=== PATIENT | female | born 1945 | race Caucasian/White ===

== ENCOUNTER 2022-06-12 09:12 | Inpatient (IN) | payer SELFPAY ==
[~2022-06-12] VITALS: Ht 160 cm; Wt 59.1 kg
[2022-06-12 09:31] LABS: GLUCOSE,POINT OF CARE 126 MG/DL (70-110)
[2022-06-12] MEDS ORDERED: VANCOMYCIN 1GM/WATER(PEG/NADA) 200 ML IV ONE (09:45)
[2022-06-12] MEDS ORDERED: LEVO137T24 PO (09:45)
[2022-06-12] MEDS ORDERED: PIPERACILLIN/TAZO 3.375 GM/D5W 50 ML IV ONE (09:45)
[2022-06-12] MEDS ORDERED: ALPR-705 PO (09:45)
[2022-06-12] MEDS ORDERED: INSREG SQ (09:45)
[2022-06-12] MEDS ORDERED: LISI-894 PO (09:45)
[2022-06-12] MEDS ORDERED: METF-1211 PO (09:45)
[2022-06-12] MEDS ORDERED: ATOR10TA84 PO (09:45)
[2022-06-12] MEDS ORDERED: MORPHINE SULFATE 2 MG/ML SYRINGE IVP ONE (10:00)
[2022-06-12 10:04] LABS: BASOPHILS % (AUTO) 0.3 % (0.0-2.0); EOSINOPHILS % (AUTO) 1.1 % (1.0-6.0); HEMATOCRIT 32.2 % (36-46); HEMOGLOBIN 10.4 g/dL (12.0-16.0); LYMPHOCYTES # (AUTO) 2.4 K/uL (1.0-4.8); LYMPHOCYTES % (AUTO) 15.2 % (22.0-44.0); MEAN CORPUSCULAR HEMOGLOBIN 29.2 pg (26.0-34.0); MEAN CORPUSCULAR HGB CONC 32.3 G/dL (31.0-37.0); MEAN CORPUSCULAR VOLUME 90 fL (80-100); MONOCYTES # (AUTO) 0.9 K/uL (0.1-1.0); MONOCYTES % (AUTO) 5.4 % (2.0-9.0); NEUTROPHILS # (AUTO) 12.4 K/uL (1.8-7.7); PLATELET COUNT (AUTO) 613 K/uL (150-450); RED BLOOD CELL COUNT(AUTO) 3.57 MIL/uL (4.00-5.20); RED CELL DISTRIBUTION WIDTH 14.5 % (11.5-14.5)
[2022-06-12 10:23] LABS: COVID AG,FIA SOURCE NASOPHARYNGEAL
[2022-06-12 10:28] LABS: CALCIUM, TOTAL 9.4 mg/dL (8.8-10.5); CREATININE 1.29 mg/dL (0.60-1.30); POTASSIUM 4.4 mmol/L (3.5-5.1)
[2022-06-12 10:33] LABS: ALBUMIN 2.5 g/dL (3.4-5.0); BILIRUBIN,TOTAL 0.3 mg/dL (0.1-1.0); TOTAL PROTEIN, SERUM 7.6 g/dL (6.4-8.2)
[2022-06-12] MEDS ORDERED: ONDANSETRON HCL 4 MG/2 ML VIAL IVP PRN ×2 (11:00→13:00)
[2022-06-12] MEDS ORDERED: ACETAMINOPHEN 325 MG TABLET PO PRN ×2 (11:00→13:00)
[2022-06-12] MEDS ORDERED: MORPHINE SULFATE 2 MG/ML SYRINGE IVP PRN (11:00)
[2022-06-12] MEDS ORDERED: HYDROCODONE/ACETAMINOPHEN 5-325 MG TABLET PO PRN (11:00)
[2022-06-12] MEDS ORDERED: CloNIDine HCL 0.1 MG TABLET PO PRN (13:00)
[2022-06-12] MEDS ORDERED: ZOLPIDEM TARTRATE 5 MG TABLET PO PRN (13:00)
[2022-06-12] MEDS ORDERED: DEXTROSE 50%-WATER 25 GM/50 ML SYRINGE IVP PRN (13:00)
[2022-06-12] MEDS ORDERED: MAGNESIUM HYDROXIDE SUSPENSION 30 ML UDCUP PO PRN (13:00)
[2022-06-12] MEDS ORDERED: BISACODYL 10 MG RECTAL RECTAL SUPPOSITORY PR PRN (13:00)
[2022-06-12] MEDS: LISINOPRIL 20 MG TABLET PO SCH ×2 (14:14→20:47)
[2022-06-12] MEDS: HYDROCODONE/ACETAMINOPHEN 5-325 MG TABLET PO PRN ×2 (14:17→20:46)
[2022-06-12 15:57] VITALS: BP 127/60
[2022-06-12] MEDS: HEPARIN SODIUM,PORCINE 5,000 UNITS/ML VIAL SQ SCH ×2 (16:00→23:32)
[2022-06-12] MEDS: MetFORMIN HCL 500 MG TABLET PO SCH (18:00)
[2022-06-12] MEDS: MORPHINE SULFATE 2 MG/ML SYRINGE IVP PRN (18:26)
[2022-06-12 19:19] VITALS: BP 143/64
[2022-06-12 19:46] LABS: GLUCOMETER DEV NAME(LOC) 6N.1; GLUCOSE,POINT OF CARE 57 MG/DL (70-110)
[2022-06-12 19:46] LABS: GLUCOMETER DEV NAME(LOC) 6N.2B; GLUCOSE,POINT OF CARE 89 MG/DL (70-110)
[2022-06-12] MEDS ORDERED: DEXTROSE 5%-0.45% SODIUM CHL 1,000 ML IV ONE (20:30)
[2022-06-12] MEDS: DOCUSATE SODIUM 100 MG CAPSULE PO SCH (20:46)
[2022-06-12 22:51] LABS: GLUCOMETER DEV NAME(LOC) 6N.2B; GLUCOSE,POINT OF CARE 120 MG/DL (70-110)
[2022-06-13] MEDS: HYDROCODONE/ACETAMINOPHEN 5-325 MG TABLET PO PRN ×4 (01:59→22:10)
[2022-06-13 04:21] VITALS: BP 142/75
[2022-06-13] MEDS: LEVOTHYROXINE SODIUM 137 MCG TABLET PO SCH (06:32)
[2022-06-13 06:48] LABS: BASOPHILS % (AUTO) 0.2 % (0.0-2.0); EOSINOPHILS % (AUTO) 0.8 % (1.0-6.0); HEMATOCRIT 29.1 % (36-46); HEMOGLOBIN 9.6 g/dL (12.0-16.0); LYMPHOCYTES % (AUTO) 11.6 % (22.0-44.0); MEAN CORPUSCULAR HGB CONC 32.9 G/dL (31.0-37.0); MEAN CORPUSCULAR VOLUME 91 fL (80-100); MONOCYTES # (AUTO) 1.2 K/uL (0.1-1.0); MONOCYTES % (AUTO) 6.7 % (2.0-9.0); NEUTROPHILS # (AUTO) 14.1 K/uL (1.8-7.7); NEUTROPHILS % (AUTO) 80.7 % (40.0-70.0); PLATELET COUNT (AUTO) 530 K/uL (150-450); RED CELL DISTRIBUTION WIDTH 14.3 % (11.5-14.5)
[2022-06-13 07:06] LABS: CALCIUM, TOTAL 8.9 mg/dL (8.8-10.5); CREATININE 1.31 mg/dL (0.60-1.30); POTASSIUM 4.6 mmol/L (3.5-5.1)
[2022-06-13 07:06] LABS: GLUCOMETER DEV NAME(LOC) 6N.1; GLUCOSE,POINT OF CARE 87 MG/DL (70-110)
[2022-06-13 07:34] VITALS: BP 156/66
[2022-06-13] MEDS: MetFORMIN HCL 500 MG TABLET PO SCH ×2 (07:46→18:17)
[2022-06-13] MEDS: HEPARIN SODIUM,PORCINE 5,000 UNITS/ML VIAL SQ SCH ×3 (07:46→23:42)
[2022-06-13] MEDS: DOCUSATE SODIUM 100 MG CAPSULE PO SCH ×2 (08:58→19:44)
[2022-06-13] MEDS: PANTOPRAZOLE SODIUM 40 MG DR TABLET PO SCH (08:58)
[2022-06-13] MEDS: LISINOPRIL 20 MG TABLET PO SCH ×2 (08:58→19:44)
[2022-06-13] MEDS ORDERED: ATORVASTATIN CALCIUM 10 MG TABLET PO SCH (09:00)
[2022-06-13] MEDS ORDERED: VANCOMYCIN HCL 1 GM in DEXTROSE 5%-WATER 250 ML IV ONE (09:00)
[2022-06-13] MEDS: MORPHINE SULFATE 2 MG/ML SYRINGE IVP PRN (09:11)
[2022-06-13] MEDS: PIPERACILLIN SODIUM/TAZOBACTAM 2.25 GM in DEXTROSE 5%-WATER 50 ML IV SCH ×3 (12:20→23:42)
[2022-06-13 15:01] LABS: GLUCOMETER DEV NAME(LOC) 6N.2B; GLUCOSE,POINT OF CARE 127 MG/DL (70-110)
[2022-06-13 15:16] VITALS: BP 157/66
[2022-06-13] MEDS ORDERED: SODIUM CHLORIDE 0.9% 1,000 ML IV ONE (17:45)
[2022-06-13] MEDS: INSULIN LISPRO 100 UNITS/ML SQ PRN ×2 (17:59→19:45)
[2022-06-13] MEDS: ASPIRIN 81 MG DR TABLET PO SCH (18:17)
[2022-06-13 19:15] LABS: GLUCOMETER DEV NAME(LOC) 6N.1; GLUCOSE,POINT OF CARE 175 MG/DL (70-110)
[2022-06-13 19:29] VITALS: BP 122/61
[2022-06-13 21:22] LABS: GLUCOMETER DEV NAME(LOC) 6N.2B; GLUCOSE,POINT OF CARE 183 MG/DL (70-110)
[2022-06-14] MEDS ORDERED: SODIUM CL IRRIG SOLN BOTTLE 250 ML IRRIG ONE (04:54)
[2022-06-14 05:22] VITALS: BP 132/55
[2022-06-14] MEDS: HYDROCODONE/ACETAMINOPHEN 5-325 MG TABLET PO PRN ×2 (05:52→10:25)
[2022-06-14] MEDS: LEVOTHYROXINE SODIUM 137 MCG TABLET PO SCH (05:52)
[2022-06-14] MEDS: PIPERACILLIN SODIUM/TAZOBACTAM 2.25 GM in DEXTROSE 5%-WATER 50 ML IV SCH ×4 (05:52→23:32)
[2022-06-14 07:24] LABS: BASOPHILS % (AUTO) 0.4 % (0.0-2.0); EOSINOPHILS % (AUTO) 0.3 % (1.0-6.0); HEMATOCRIT 28.1 % (36-46); LYMPHOCYTES # (AUTO) 1.6 K/uL (1.0-4.8); LYMPHOCYTES % (AUTO) 9.5 % (22.0-44.0); MEAN CORPUSCULAR HEMOGLOBIN 29.1 pg (26.0-34.0); MEAN CORPUSCULAR VOLUME 91 fL (80-100); MONOCYTES # (AUTO) 0.9 K/uL (0.1-1.0); NEUTROPHILS # (AUTO) 14.7 K/uL (1.8-7.7); NEUTROPHILS % (AUTO) 84.8 % (40.0-70.0); PLATELET COUNT (AUTO) 451 K/uL (150-450); RED BLOOD CELL COUNT(AUTO) 3.09 MIL/uL (4.00-5.20); RED CELL DISTRIBUTION WIDTH 14.4 % (11.5-14.5)
[2022-06-14 07:40] LABS: CALCIUM, TOTAL 8.7 mg/dL (8.8-10.5); CREATININE 1.39 mg/dL (0.60-1.30); POTASSIUM 4.1 mmol/L (3.5-5.1)
[2022-06-14 07:53] VITALS: BP 109/50
[2022-06-14] MEDS: MetFORMIN HCL 500 MG TABLET PO SCH ×2 (08:07→17:46)
[2022-06-14] MEDS: ASPIRIN 81 MG DR TABLET PO SCH (08:08)
[2022-06-14] MEDS: ATORVASTATIN CALCIUM 20 MG TABLET PO SCH (08:08)
[2022-06-14] MEDS: DOCUSATE SODIUM 100 MG CAPSULE PO SCH ×2 (08:09→21:05)
[2022-06-14] MEDS: PANTOPRAZOLE SODIUM 40 MG DR TABLET PO SCH (08:09)
[2022-06-14] MEDS: HEPARIN SODIUM,PORCINE 5,000 UNITS/ML VIAL SQ SCH ×3 (08:12→23:32)
[2022-06-14] MEDS: VANCOMYCIN 1GM/WATER(PEG/NADA) 200 ML IV SCH (08:14)
[2022-06-14] MEDS: LISINOPRIL 20 MG TABLET PO SCH ×2 (08:16→21:05)
[2022-06-14 11:26] LABS: GLUCOMETER DEV NAME(LOC) 6N.2B; GLUCOSE,POINT OF CARE 135 MG/DL (70-110)
[2022-06-14] MEDS: INSULIN LISPRO 100 UNITS/ML SQ PRN ×2 (12:20→17:53)
[2022-06-14] MEDS: MORPHINE SULFATE 2 MG/ML SYRINGE IVP PRN (15:41)
[2022-06-14 17:07] VITALS: BP 149/55
[2022-06-14 20:06] VITALS: BP 138/61
[2022-06-14 20:16] LABS: GLUCOMETER DEV NAME(LOC) 6N.1; GLUCOSE,POINT OF CARE 160 MG/DL (70-110)
[2022-06-14 20:21] LABS: GLUCOMETER DEV NAME(LOC) 6N.2B; GLUCOSE,POINT OF CARE 201 MG/DL (70-110)
[2022-06-14 22:06] LABS: GLUCOMETER DEV NAME(LOC) 6N.1; GLUCOSE,POINT OF CARE 132 MG/DL (70-110)
[2022-06-15 04:13] VITALS: BP 123/68
[2022-06-15] MEDS: PIPERACILLIN SODIUM/TAZOBACTAM 2.25 GM in DEXTROSE 5%-WATER 50 ML IV SCH ×4 (05:42→23:43)
[2022-06-15] MEDS: LEVOTHYROXINE SODIUM 137 MCG TABLET PO SCH (05:42)
[2022-06-15] MEDS: INSULIN LISPRO 100 UNITS/ML SQ PRN ×3 (05:51→17:51)
[2022-06-15 05:59] LABS: BASOPHILS % (AUTO) 0.1 % (0.0-2.0); EOSINOPHILS % (AUTO) 0.1 % (1.0-6.0); HEMOGLOBIN 9.1 g/dL (12.0-16.0); LYMPHOCYTES # (AUTO) 1.1 K/uL (1.0-4.8); LYMPHOCYTES % (AUTO) 6.6 % (22.0-44.0); MEAN CORPUSCULAR HEMOGLOBIN 29.5 pg (26.0-34.0); MEAN CORPUSCULAR HGB CONC 32.4 G/dL (31.0-37.0); MEAN CORPUSCULAR VOLUME 91 fL (80-100); MONOCYTES # (AUTO) 0.7 K/uL (0.1-1.0); MONOCYTES % (AUTO) 3.9 % (2.0-9.0); NEUTROPHILS # (AUTO) 15.2 K/uL (1.8-7.7); PLATELET COUNT (AUTO) 426 K/uL (150-450); RED BLOOD CELL COUNT(AUTO) 3.08 MIL/uL (4.00-5.20); RED CELL DISTRIBUTION WIDTH 14.4 % (11.5-14.5)
[2022-06-15] MEDS: HYDROCODONE/ACETAMINOPHEN 5-325 MG TABLET PO PRN ×2 (06:00→20:47)
[2022-06-15 06:01] LABS: NEUTROPHILS % (AUTO) 89.3 % (40.0-70.0)
[2022-06-15 06:03] LABS: CALCIUM, TOTAL 8.4 mg/dL (8.8-10.5); CREATININE 1.37 mg/dL (0.60-1.30); POTASSIUM 4.3 mmol/L (3.5-5.1)
[2022-06-15 07:36] LABS: GLUCOMETER DEV NAME(LOC) 6N.1; GLUCOSE,POINT OF CARE 246 MG/DL (70-110)
[2022-06-15 08:12] VITALS: BP 118/54
[2022-06-15] MEDS: PANTOPRAZOLE SODIUM 40 MG DR TABLET PO SCH (08:31)
[2022-06-15] MEDS: DOCUSATE SODIUM 100 MG CAPSULE PO SCH ×2 (08:31→20:47)
[2022-06-15] MEDS: ASPIRIN 81 MG DR TABLET PO SCH (08:32)
[2022-06-15] MEDS: MetFORMIN HCL 500 MG TABLET PO SCH ×2 (08:32→17:51)
[2022-06-15] MEDS: LISINOPRIL 20 MG TABLET PO SCH ×2 (08:32→20:47)
[2022-06-15] MEDS: HEPARIN SODIUM,PORCINE 5,000 UNITS/ML VIAL SQ SCH ×3 (08:32→23:43)
[2022-06-15] MEDS: ATORVASTATIN CALCIUM 20 MG TABLET PO SCH (08:32)
[2022-06-15] MEDS: VANCOMYCIN 1GM/WATER(PEG/NADA) 200 ML IV SCH (08:44)
[2022-06-15] MEDS: MORPHINE SULFATE 2 MG/ML SYRINGE IVP PRN ×3 (09:21→18:27)
[2022-06-15] MEDS: SODIUM CHLORIDE 0.9% 1,000 ML IV SCH (10:28)
[2022-06-15 11:50] LABS: VANCOMYCIN,RANDOM 14.7 mcg/mL (25.0-50.0)
[2022-06-15 12:16] LABS: GLUCOMETER DEV NAME(LOC) 6N.1; GLUCOSE,POINT OF CARE 192 MG/DL (70-110)
[2022-06-15] MEDS ORDERED: IOHEXOL 350 MG/ML 100 ML VIAL ONE ×2 (12:53→12:54)
[2022-06-15] MEDS ORDERED: SODIUM CHLORIDE 0.9% 100 ML ONE (12:53)
[2022-06-15] MEDS ORDERED: HYDROGEN PEROXIDE 118 ML SOLUTION TP ONE (15:00)
[2022-06-15 16:31] VITALS: BP 146/65
[2022-06-15 19:21] LABS: GLUCOMETER DEV NAME(LOC) 6N.2B; GLUCOSE,POINT OF CARE 184 MG/DL (70-110)
[2022-06-15 19:50] VITALS: BP 138/60
[2022-06-15 22:16] LABS: GLUCOMETER DEV NAME(LOC) 6N.2B; GLUCOSE,POINT OF CARE 125 MG/DL (70-110)
[2022-06-16 04:00] VITALS: BP 132/65
[2022-06-16] MEDS: PIPERACILLIN SODIUM/TAZOBACTAM 2.25 GM in DEXTROSE 5%-WATER 50 ML IV SCH ×2 (05:54→11:42)
[2022-06-16] MEDS: SODIUM CHLORIDE 0.9% 1,000 ML IV SCH (05:54)
[2022-06-16] MEDS: LEVOTHYROXINE SODIUM 137 MCG TABLET PO SCH (05:54)
[2022-06-16] MEDS: INSULIN LISPRO 100 UNITS/ML SQ PRN ×2 (05:55→11:50)
[2022-06-16] MEDS: HYDROCODONE/ACETAMINOPHEN 5-325 MG TABLET PO PRN (06:03)
[2022-06-16 06:54] LABS: CALCIUM, TOTAL 8.3 mg/dL (8.8-10.5); CREATININE 1.42 mg/dL (0.60-1.30)
[2022-06-16 07:15] LABS: GLUCOMETER DEV NAME(LOC) 6N.1; GLUCOSE,POINT OF CARE 160 MG/DL (70-110)
[2022-06-16 08:09] VITALS: BP 130/48
[2022-06-16] MEDS: LISINOPRIL 20 MG TABLET PO SCH (08:35)
[2022-06-16] MEDS: MetFORMIN HCL 500 MG TABLET PO SCH (08:35)
[2022-06-16] MEDS: ASPIRIN 81 MG DR TABLET PO SCH (08:36)
[2022-06-16] MEDS: PANTOPRAZOLE SODIUM 40 MG DR TABLET PO SCH (08:36)
[2022-06-16] MEDS: ATORVASTATIN CALCIUM 20 MG TABLET PO SCH (08:36)
[2022-06-16] MEDS: DOCUSATE SODIUM 100 MG CAPSULE PO SCH (08:36)
[2022-06-16] MEDS: HEPARIN SODIUM,PORCINE 5,000 UNITS/ML VIAL SQ SCH (08:36)
[2022-06-16] MEDS: VANCOMYCIN 1GM/WATER(PEG/NADA) 200 ML IV SCH (08:42)
[2022-06-16 14:01] LABS: GLUCOMETER DEV NAME(LOC) 6N.2B; GLUCOSE,POINT OF CARE 263 MG/DL (70-110)
== END 2022-06-16 15:44 | disposition left against medical advice (07) | DRG 872 ==
LOC: EMS 09:14 → 6S 15:28
PROVIDERS: ADMIT Internal Medicine; ATTEND Internal Medicine
DX: A41.9 Sepsis, unspecified organism (principal); E44.0 Moderate protein-calorie malnutrition; M86.171 Other acute osteomyelitis, right ankle and foot; N17.9 Acute kidney failure, unspecified; E11.52 Type 2 diabetes mellitus with diabetic peripheral angiopathy with gangrene; E11.69 Type 2 diabetes mellitus with other specified complication; E11.22 Type 2 diabetes mellitus with diabetic chronic kidney disease; E03.9 Hypothyroidism, unspecified; F41.9 Anxiety disorder, unspecified; E78.00 Pure hypercholesterolemia, unspecified; F17.210 Nicotine dependence, cigarettes, uncomplicated; E11.65 Type 2 diabetes mellitus with hyperglycemia; Z20.822 Contact with and (suspected) exposure to COVID-19; I12.9 Hypertensive chronic kidney disease with stage 1 through stage 4 chronic kidney disease, or unspecified chronic kidney disease; T63.301A Toxic effect of unspecified spider venom, accidental (unintentional), initial encounter; D64.9 Anemia, unspecified; N18.9 Chronic kidney disease, unspecified; Z79.4 Long term (current) use of insulin; Z89.422 Acquired absence of other left toe(s); Y92.89 Other specified places as the place of occurrence of the external cause
CPT/HCPCS: 71045; 73718; 75635; 80048; 80053; 80202; 82962; 83036; 83605; 83880; 85025; 87040; 87081; 93306; 93925; 99285; J1644; J2270; J2543; J3370; J7030; J7050; J7060; Q9967; 36415-L1; 36415-TC

== ENCOUNTER 2022-06-21 09:55 | Emergency (ER) | payer MEDICAID ==
[~2022-06-21] VITALS: Ht 152.4 cm; Wt 54.5 kg
[~2022-06-21 09:55] MED LIST: ALPR-705 PO; ATOR10TA84 PO; INSREG SQ; LEVO137T24 PO; LISI-894 PO; METF-1211 PO
[2022-06-21 10:16] LABS: GLUCOSE,POINT OF CARE 150 MG/DL (70-110)
[2022-06-21 11:02] LABS: BASOPHILS % (AUTO) 0.4 % (0.0-2.0); EOSINOPHILS % (AUTO) 1.1 % (1.0-6.0); HEMATOCRIT 28.6 % (36-46); HEMOGLOBIN 9.1 g/dL (12.0-16.0); LYMPHOCYTES # (AUTO) 1.7 K/uL (1.0-4.8); LYMPHOCYTES % (AUTO) 14.6 % (22.0-44.0); MEAN CORPUSCULAR HEMOGLOBIN 29.4 pg (26.0-34.0); MEAN CORPUSCULAR HGB CONC 31.7 G/dL (31.0-37.0); MEAN CORPUSCULAR VOLUME 93 fL (80-100); MONOCYTES # (AUTO) 0.8 K/uL (0.1-1.0); MONOCYTES % (AUTO) 6.4 % (2.0-9.0); NEUTROPHILS # (AUTO) 9.3 K/uL (1.8-7.7); NEUTROPHILS % (AUTO) 77.5 % (40.0-70.0); PLATELET COUNT (AUTO) 414 K/uL (150-450); RED BLOOD CELL COUNT(AUTO) 3.08 MIL/uL (4.00-5.20); RED CELL DISTRIBUTION WIDTH 15.6 % (11.5-14.5)
[2022-06-21 11:09] LABS: COVID AG,FIA SOURCE NASOPHARYNGEAL
[2022-06-21 11:14] LABS: CALCIUM, TOTAL 8.8 mg/dL (8.8-10.5); CREATININE 1.3 mg/dL (0.60-1.30); POTASSIUM 3.6 mmol/L (3.5-5.1)
[2022-06-21] MEDS ORDERED: MORPHINE SULFATE 4 MG/ML SYRINGE IVP ONE (11:15)
[2022-06-21 11:29] LABS: ALBUMIN 2.4 g/dL (3.4-5.0); BILIRUBIN,TOTAL 0.3 mg/dL (0.1-1.0); TOTAL PROTEIN, SERUM 6.7 g/dL (6.4-8.2)
[2022-06-21] MEDS ORDERED: CefTRIAXone 1 GM/DEXTROSE 50 ML IV ONE (11:30)
[2022-06-21 14:56] VITALS: BP 129/56
[2022-06-21] MEDS ORDERED: DEXTROSE 50%-WATER 25 GM/50 ML SYRINGE IVP ONE ×2 (15:29→15:30)
[2022-06-21 15:41] LABS: GLUCOMETER DEV NAME(LOC) ERT.5; GLUCOSE,POINT OF CARE 40 MG/DL (70-110)
== END 2022-06-21 16:31 | disposition short-term general hospital (02) ==
LOC: EMS 10:00
DX: I96 Gangrene, not elsewhere classified (principal); F41.9 Anxiety disorder, unspecified; E11.9 Type 2 diabetes mellitus without complications; E78.00 Pure hypercholesterolemia, unspecified; I10 Essential (primary) hypertension; E03.9 Hypothyroidism, unspecified; F17.210 Nicotine dependence, cigarettes, uncomplicated; Z89.422 Acquired absence of other left toe(s); Z20.822 Contact with and (suspected) exposure to COVID-19; Z91.012 Allergy to eggs
CPT/HCPCS: 99285; 96365; 96375; 87426; 80053; 82962; 85025; 87040; 36415; 93005; J0696; J2270